=== PATIENT | female | born 1980 | race Caucasian/White ===

== ENCOUNTER 2018-11-09 06:59 | Emergency (ER) | payer OTHER ==
[~2018-11-09] VITALS: Ht 170.2 cm; Wt 71.2 kg
[2018-11-09 07:16] VITALS: Ht 170.2 cm; Wt 71.2 kg
[2018-11-09 08:09] LABS: BASOPHIL % 0.8 % (0-2); PLATELET COUNT 174 x10^3mcL (130-400); RED CELL DISTRIBUTION WIDTH 12.5 % (11.5-14.5)
[2018-11-09 08:16] LABS: CALCIUM 8.8 mg/dL (8.5-10.1); CARBON DIOXIDE 28.1 mmol/L (21-32); CHLORIDE SERUM 102 mmol/L (98-107); CREATININE SERUM 0.7 mg/dL (0.6-1.0); GFR1 > 60 mL/min; GLUCOSE SERUM 95 mg/dL (74-106); POTASSIUM SERUM 3.8 mmol/L (3.5-5.1); SODIUM SERUM 139 mmol/L (136-145)
[2018-11-09 08:21] LABS: ALBUMIN 3.6 g/dL (3.4-5.0); ALKALINE PHOSPHATASE 44 U/L (46-116); ALT/SGPT 86 U/L (14-59); AST/SGOT 32 U/L (15-37); BILIRUBIN TOTAL 0.6 mg/dL (0.20-1.00); LIPASE 189 IU/L (73-393); TOTAL PROTEIN, SERUM 7.3 g/dL (6.4-8.2); TRIGLYCERIDES 74 mg/dL (<150)
[2018-11-09 08:25] LABS: CHOLESTEROL 214 mg/dL (<200); CHOLESTEROL/HDL RATIO 3.5; HDL CHOLESTEROL 62 mg/dL (40-60)
[2018-11-09 08:30] LABS: FREE T4 0.85 ng/dL (0.76-1.46); FREE THYROXINE INDEX 2.4 ug/dL (1.4-4.5); T4(THYROXINE) 6.9 ug/dL (4.7-13.3)
[2018-11-09 08:47] LABS: microscopic required? YES; urine erythrocyte TRACE (NEGATIVE)
[2018-11-09 08:47] LABS: T3 TOTAL 1.15 ng/mL
[2018-11-09 09:29] VITALS: BP 138/89
== END 2018-11-09 09:29 | disposition home or self-care (01) ==
LOC: ED 06:59
PROVIDERS: Specialist
DX: M75.42 Impingement syndrome of left shoulder (principal); I10 Essential (primary) hypertension; Z90.710 Acquired absence of both cervix and uterus; Z98.890 Other specified postprocedural states
CPT/HCPCS: 36415; 83880; 84439

== ENCOUNTER 2019-02-11 23:32 | Emergency (ER) | payer OTHER ==
[~2019-02-11] VITALS: Ht 170.2 cm; Wt 75.7 kg
[2019-02-11 23:52] VITALS: Ht 170.2 cm; Wt 75.7 kg
[2019-02-12 01:29] LABS: BASOPHIL % 0.5 % (0-2); PLATELET COUNT 216 x10^3mcL (130-400); RED CELL DISTRIBUTION WIDTH 11.8 % (11.5-14.5)
[2019-02-12 01:34] LABS: CALCIUM 8.6 mg/dL (8.5-10.1); CARBON DIOXIDE 31.5 mmol/L (21-32); CHLORIDE SERUM 103 mmol/L (98-107); CREATININE SERUM 0.6 mg/dL (0.6-1.0); GFR1 > 60 mL/min; GLUCOSE SERUM 94 mg/dL (74-106); POTASSIUM SERUM 3.7 mmol/L (3.5-5.1); SODIUM SERUM 140 mmol/L (136-145)
[2019-02-12 01:43] LABS: ALBUMIN 3.4 g/dL (3.4-5.0); ALKALINE PHOSPHATASE 38 U/L (46-116); ALT/SGPT 37 U/L (14-59); AST/SGOT 26 U/L (15-37); BILIRUBIN TOTAL 0.31 mg/dL (0.20-1.00)
[2019-02-12 02:48] VITALS: BP 122/72
== END 2019-02-12 02:48 | disposition home or self-care (01) ==
LOC: ED 23:32
PROVIDERS: Emergency Medicine
DX: J98.01 Acute bronchospasm (principal); R94.31 Abnormal electrocardiogram [ECG] [EKG]; I10 Essential (primary) hypertension; Z90.710 Acquired absence of both cervix and uterus
CPT/HCPCS: 36415; 87804; J7512

== ENCOUNTER 2019-09-25 06:24 | Emergency (ER) | payer OTHER ==
[~2019-09-25] VITALS: Ht 170.2 cm; Wt 78.0 kg
[2019-09-25 06:29] VITALS: BP 132/92
== END 2019-09-25 07:21 | disposition home or self-care (01) ==
LOC: ED 06:24
DX: B34.9 Viral infection, unspecified (principal); I10 Essential (primary) hypertension; Z90.710 Acquired absence of both cervix and uterus; Z91.040 Latex allergy status

== ENCOUNTER 2020-05-23 04:43 | Emergency (ER) | payer OTHER ==
[~2020-05-23] VITALS: Ht 170.2 cm; Wt 77.1 kg
[2020-05-23 04:55] VITALS: Ht 170.2 cm; Wt 77.1 kg
[2020-05-23 07:31] VITALS: BP 122/84
== END 2020-05-23 07:23 | disposition home or self-care (01) ==
LOC: ED 04:43
DX: J01.90 Acute sinusitis, unspecified (principal); I10 Essential (primary) hypertension; Z20.828 Contact with and (suspected) exposure to other viral communicable diseases; Z90.710 Acquired absence of both cervix and uterus; Z91.040 Latex allergy status; Z41.1 Encounter for cosmetic surgery
CPT/HCPCS: U0003-CS

== ENCOUNTER 2020-10-02 13:17 | Emergency (ER) | payer OTHER ==
[2020-10-02 16:45] LABS: microscopic required? NO
[2020-10-02 16:47] LABS: BASOPHIL % 0.4 % (0-2); PLATELET COUNT 246 x10^3mcL (130-400); RED CELL DISTRIBUTION WIDTH 12.9 % (11.5-14.5)
[2020-10-02 16:51] LABS: urine erythrocyte NEGATIVE (NEGATIVE)
[2020-10-02 17:10] LABS: CALCIUM 8.7 mg/dL (8.5-10.1); CHLORIDE SERUM 104 mmol/L (98-107); CREATININE SERUM 0.7 mg/dL (0.6-1.0); GFR1 > 60 mL/min; GLUCOSE SERUM 82 mg/dL (74-106); POTASSIUM SERUM 3.8 mmol/L (3.5-5.1); SODIUM SERUM 140 mmol/L (136-145)
[2020-10-02 17:15] LABS: ALKALINE PHOSPHATASE 60 U/L (46-116); ALT/SGPT 252 U/L (14-59); AST/SGOT 87 U/L (15-37); BILIRUBIN TOTAL 0.4 mg/dL (0.20-1.00); LIPASE 145 IU/L (73-393); TOTAL PROTEIN, SERUM 7.8 g/dL (6.4-8.2)
[2020-10-02 22:04] VITALS: BP 139/83
== END 2020-10-02 22:04 | disposition home or self-care (01) ==
LOC: ED 13:17
PROVIDERS: Emergency Medicine
DX: R10.32 Left lower quadrant pain (principal); H92.03 Otalgia, bilateral; I10 Essential (primary) hypertension; Z88.5 Allergy status to narcotic agent; Z90.710 Acquired absence of both cervix and uterus; Z91.040 Latex allergy status
CPT/HCPCS: J1885; J2405; J7030; Q9966; Q9967